=== PATIENT | male | born 1940 | race Caucasian/White ===

== ENCOUNTER 2018-03-07 07:45 | Observation (INO) | payer OTHER ==
[~2018-03-07] VITALS: Ht 175.3 cm; Wt 91.1 kg
[~2018-03-07 07:45] MED LIST: ALBU90OI61 INH; ASPI81CH PO; AZIT250 PO; EZET10; FENO54; GLIM2 PO; GLIM4; INSLI100I SUBQ; INSULANI SUBQ; INSULANPEN; METF500; METF500 PO; PRED20 PO; QUIN200; ROSI2; VALS80; VALS80 PO; VERA80; VERA80 PO
[2018-03-07 08:46] LABS: BASOPHILS ABSOLUTE AUTO 0.06 K/mm3 (0.00-0.23); BASOPHILS PERCENT AUTO 1 % (0-2); EOSINOPHILS ABSOLUTE AUTO 0.29 K/mm3 (0.00-0.68); EOSINOPHILS PERCENT AUTO 3 % (0-6); Hematocrit 40.6 % (37.0-53.0); Hemoglobin 13.7 g/dL (13.5-17.5); IMMATURE GRAN ABSOLUTE AUTO 0.04 K/mm3 (0.00-0.10); IMMATURE GRAN PERCENT AUTO 0 % (0-1); LYMPHOCYTES ABSOLUTE AUTO 1.04 K/mm3 (0.84-5.20); LYMPHOCYTES PERCENT AUTO 11 % (21-46); MONOCYTES ABSOLUTE AUTO 0.44 K/mm3 (0.16-1.47); MONOCYTES PERCENT AUTO 5 % (4-13); Mean Corpuscular HGB 29.7 pg (26.0-34.0); Mean Corpuscular HGB Conc 33.7 g/dL (31.5-36.5); Mean Corpuscular Volume 88 fL (80-100); Mean Platelet Volume 9.7 fL (9.1-12.4); NEUTROPHILS ABSOLUTE AUTO 7.43 K/mm3 (1.96-9.15); NEUTROPHILS PERCENT AUTO 80 % (41-73); Platelet Count 224 K/mm3 (150-400); RDW Coefficient Variation 13.2 % (11.7-14.2); RDW Standard Deviation 42.3 fL (35.1-46.3); Red Blood Cell Count 4.62 M/mm3 (4.30-5.90)
[2018-03-07] MEDS ORDERED: LOSA25 PO (08:58)
[2018-03-07 09:09] LABS: Alanine Aminotransfer (ALT/SGP 39 U/L (12-78); Albumin, Blood 3.3 g/dL (3.4-5.0); Albumin/Globulin Ratio 0.8 (0.8-1.8); Alk Phos 138 U/L (50-136); Anion Gap 8 mmol/L (6-16); Aspartate Aminotrans (AST/SGOT 74 U/L (12-37); Bilirubin, Total 0.5 mg/dL (0.1-1.0); Blood Urea Nitrogen 27 mg/dL (8-24); Bun/Creatinine Ratio 29.6 (12.0-20.0); CO2, Blood 27 mmol/L (21-32); Calcium, Blood 9.2 mg/dL (8.5-10.1); Chloride, Blood 104 mmol/L (98-108); Creatinine, Blood 0.91 mg/dL (0.60-1.20); Globulin, Blood 4.3 g/dL (2.2-4.0); Glomerular Filtration Rate >60 (60-); Glucose, Blood 235 mg/dL (70-99); Potassium, Blood 3.9 mmol/L (3.5-5.5); Sodium, Blood 139 mmol/L (136-145); Total Protein, Blood 7.6 g/dL (6.4-8.2); Troponin I <0.015 ng/mL (0.000-0.040)
[2018-03-08] MEDS ORDERED: PRED20 PO (11:53)
[2018-03-08] MEDS ORDERED: SACC250C PO (11:57)
[2018-03-08] MEDS ORDERED: AMOCLA500 PO (11:58)
[2018-03-08] MEDS ORDERED: COMBIVENT RESPIM4 GM INH (12:01)
== END 2018-03-08 13:10 | disposition home or self-care (01) ==
LOC: ER 07:45 → MEDS 07:46 → ER 11:13 → MEDS 11:13 → ENPENDDIS 03-08 10:00 → MEDS 03-08 13:10
PROVIDERS: Emergency Medicine
DX: A41.9 Sepsis, unspecified organism (principal); R65.20 Severe sepsis without septic shock; J96.01 Acute respiratory failure with hypoxia; I10 Essential (primary) hypertension; E11.9 Type 2 diabetes mellitus without complications; J44.9 Chronic obstructive pulmonary disease, unspecified; J18.9 Pneumonia, unspecified organism; Z85.038 Personal history of other malignant neoplasm of large intestine; Z87.891 Personal history of nicotine dependence; Z79.82 Long term (current) use of aspirin; Z79.4 Long term (current) use of insulin; Z79.899 Other long term (current) drug therapy
CPT/HCPCS: 36415; 71046; 80053; 82947; 83605; 84145; 84484; 85025; 93005; 93010; 94640; 94644; 94760; 96365; 96366; 96367; 96372; 99285; G0378; J0456; J0696; J1650; J1815; J7030; J7050; J7120

== ENCOUNTER → 2018-03-10 | Outpatient (CLI) | payer OTHER ==
[~2018-03-10] MED LIST changes: +AMOCLA500 PO; +BUSP10 PO; +CLON1 PO; +COMBIVENT RESPIM4 GM INH; +LOSA25 PO; +Prednisone20 MG PO; +SACC250C PO
== END | disposition home or self-care (01) ==
LOC: LAB SHORT 11:01 → LAB 11:01
DX: R05 Cough (principal)
CPT/HCPCS: 87070; 87102; 87106; 87205

== ENCOUNTER 2018-03-14 13:27 | Emergency (ER) | payer OTHER ==
[~2018-03-14] VITALS: Ht 175.3 cm; Wt 87.5 kg
[~2018-03-14 13:27] MED LIST changes: -BUSP10 PO; -CLON1 PO; -Prednisone20 MG PO
[2018-03-14] MEDS ORDERED: Prednisone20 MG PO (16:10)
[2018-03-15] MEDS ORDERED: LOSA25 PO (03:33)
[2018-03-16] MEDS ORDERED: BUSP10 PO (11:12)
[2018-03-16] MEDS ORDERED: CLON1 PO (11:13)
== END 2018-03-14 16:25 | disposition home or self-care (01) ==
LOC: ER 13:27
DX: J98.11 Atelectasis (principal); J44.9 Chronic obstructive pulmonary disease, unspecified; E11.9 Type 2 diabetes mellitus without complications; Z79.899 Other long term (current) drug therapy; Z79.4 Long term (current) use of insulin; Z79.82 Long term (current) use of aspirin; Z79.52 Long term (current) use of systemic steroids; Z87.891 Personal history of nicotine dependence
CPT/HCPCS: 36415; 71046; 94640; 94644; 94667; 96374; 99283; J2930

== ENCOUNTER 2018-03-14 22:03 | Observation (INO) | payer OTHER ==
[~2018-03-14] VITALS: Ht 175.3 cm; Wt 89.5 kg
[~2018-03-14 22:03] MED LIST changes: +Prednisone20 MG PO
[2018-03-14 23:34] LABS: BASOPHILS ABSOLUTE AUTO 0.03 K/mm3 (0.00-0.23); BASOPHILS PERCENT AUTO 0 % (0-2); EOSINOPHILS PERCENT AUTO 0 % (0-6); Hematocrit 43.6 % (37.0-53.0); Hemoglobin 14.6 g/dL (13.5-17.5); IMMATURE GRAN ABSOLUTE AUTO 0.13 K/mm3 (0.00-0.10); IMMATURE GRAN PERCENT AUTO 1 % (0-1); LYMPHOCYTES ABSOLUTE AUTO 0.79 K/mm3 (0.84-5.20); LYMPHOCYTES PERCENT AUTO 8 % (21-46); MONOCYTES ABSOLUTE AUTO 0.06 K/mm3 (0.16-1.47); MONOCYTES PERCENT AUTO 1 % (4-13); Mean Corpuscular HGB 29.6 pg (26.0-34.0); Mean Corpuscular HGB Conc 33.5 g/dL (31.5-36.5); Mean Corpuscular Volume 88 fL (80-100); Mean Platelet Volume 9.4 fL (9.1-12.4); NEUTROPHILS PERCENT AUTO 90 % (41-73); Platelet Count 326 K/mm3 (150-400); RDW Coefficient Variation 12.8 % (11.7-14.2); RDW Standard Deviation 41.6 fL (35.1-46.3); Red Blood Cell Count 4.94 M/mm3 (4.30-5.90); White Blood Cell Count 10.31 K/mm3 (4.00-11.30)
[2018-03-14 23:54] LABS: Alanine Aminotransfer (ALT/SGP 47 U/L (12-78); Albumin, Blood 3.4 g/dL (3.4-5.0); Albumin/Globulin Ratio 0.7 (0.8-1.8); Alk Phos 138 U/L (50-136); Anion Gap 13 mmol/L (6-16); Aspartate Aminotrans (AST/SGOT 41 U/L (12-37); Bilirubin, Total 0.4 mg/dL (0.1-1.0); Blood Urea Nitrogen 29 mg/dL (8-24); Bun/Creatinine Ratio 32.5 (12.0-20.0); CO2, Blood 23 mmol/L (21-32); Calcium, Blood 9.6 mg/dL (8.5-10.1); Chloride, Blood 100 mmol/L (98-108); Creatinine, Blood 0.89 mg/dL (0.60-1.20); Globulin, Blood 4.7 g/dL (2.2-4.0); Glomerular Filtration Rate >60 (60-); Glucose, Blood 561 mg/dL (70-99); Potassium, Blood 5.2 mmol/L (3.5-5.5); Sodium, Blood 136 mmol/L (136-145); Total Protein, Blood 8.1 g/dL (6.4-8.2); Troponin I <0.015 ng/mL (0.000-0.040)
[2018-03-15] MEDS ORDERED: LOSA25 PO ×2 (03:33)
[2018-03-15 04:08] LABS: Hematocrit 40.6 % (37.0-53.0); Hemoglobin 13.7 g/dL (13.5-17.5); Mean Corpuscular HGB 29.2 pg (26.0-34.0); Mean Corpuscular HGB Conc 33.7 g/dL (31.5-36.5); Mean Corpuscular Volume 87 fL (80-100); Mean Platelet Volume 9.7 fL (9.1-12.4); Platelet Count 254 K/mm3 (150-400); RDW Standard Deviation 40.8 fL (35.1-46.3); Red Blood Cell Count 4.69 M/mm3 (4.30-5.90); White Blood Cell Count 7.35 K/mm3 (4.00-11.30)
[2018-03-15 04:40] LABS: Anion Gap 13 mmol/L (6-16); Blood Urea Nitrogen 29 mg/dL (8-24); Bun/Creatinine Ratio 33.9 (12.0-20.0); CO2, Blood 23 mmol/L (21-32); Calcium, Blood 9.6 mg/dL (8.5-10.1); Chloride, Blood 102 mmol/L (98-108); Creatinine, Blood 0.86 mg/dL (0.60-1.20); Glomerular Filtration Rate >60 (60-); Glucose, Blood 482 mg/dL (70-99); Potassium, Blood 4.6 mmol/L (3.5-5.5); Sodium, Blood 138 mmol/L (136-145)
[2018-03-16] MEDS ORDERED: BUSP10 PO ×2 (11:12)
[2018-03-16] MEDS ORDERED: CLON1 PO ×2 (11:13)
== END 2018-03-16 12:08 | disposition home or self-care (01) ==
LOC: ER 22:03 → MEDS 22:04
PROVIDERS: Emergency Medicine; Nurse Practitioner Acute Care
DX: J44.1 Chronic obstructive pulmonary disease with (acute) exacerbation (principal); F41.9 Anxiety disorder, unspecified; R09.02 Hypoxemia; I10 Essential (primary) hypertension; E11.65 Type 2 diabetes mellitus with hyperglycemia; Z85.038 Personal history of other malignant neoplasm of large intestine; Z79.82 Long term (current) use of aspirin; Z79.899 Other long term (current) drug therapy; Z79.52 Long term (current) use of systemic steroids; Z88.8 Allergy status to other drugs, medicaments and biological substances; Z87.891 Personal history of nicotine dependence; Z79.01 Long term (current) use of anticoagulants
CPT/HCPCS: 36415; 74177; 80048; 80053; 82947; 83880; 84484; 85025; 85027; 93005; 93010; 94640; 94760; 96361; 96374; 96375; 96376; 99285; G0378; J0360; J1815; J1940; J2060; J2920; J2930; J7030; Q9967

== ENCOUNTER 2019-08-10 18:17 | Emergency (ER) | payer OTHER ==
[~2019-08-10 18:17] MED LIST changes: +ALBU90OI INH; +BUSP5 PO; +CITA20 PO; +CLON1 PO; +ESCI5 PO; -INSULANPEN; +INSULANPEN SC; +LIRA0.6P SC; +LOSA50 PO; +METF500C; +METO25 PO; +VERA120 PO
== END 2019-08-10 18:51 | disposition left against medical advice (07) ==
LOC: ER 18:17
DX: Z53.21 Procedure and treatment not carried out due to patient leaving prior to being seen by health care provider (principal)

== ENCOUNTER → 2019-08-12 | Outpatient (CLI) | payer OTHER ==
[2019-08-12 09:35] LABS: Source, Urine Clean Catch
[2019-08-12 10:21] LABS: Bilirubin, Urine Neg (Neg); Blood, Urine 5+ (Neg); Glucose Qualitative, Urine 4+ (Neg); Ketones, Urine Neg (Neg); Leukocyte Esterase, Urine 3+ (Neg); Nitrite, Urine Neg (Neg); Protein, Urine 3+ (Neg); Urobilinogen, Urine NORM (Normal)
[2019-08-12 10:37] LABS: Appearance, Urine Cloudy (Clear); Color, Urine Yellow (P-Yellow)
[2019-08-12 10:38] LABS: White Blood Cells, Urine TNTC /hpf (0-5)
[2019-08-12 10:39] LABS: Bacteria Many /hpf; Squamous Epithelial Cells Not Seen /hpf (Few)
== END | disposition home or self-care (01) ==
LOC: LAB 09:33 → LAB SHORT 09:33 → LAB FUT 08-11 18:15
PROVIDERS: Internal Medicine
DX: R30.0 Dysuria (principal)
CPT/HCPCS: 81001; 87077; 87086; 87186

== ENCOUNTER 2020-04-15 21:41 | Emergency (ER) | payer OTHER ==
[~2020-04-15] VITALS: Ht 175.3 cm; Wt 79.4 kg
[~2020-04-15 21:41] MED LIST changes: -ASPI81CH PO; +Aspirin EC81 MG PO; -BUSP5 PO; +Buspirone HCl7.5 MG PO; -INSULANPEN SC; +LANTUS SOL100 UNIT/1 SC
[2020-04-15 22:14] LABS: Source, Urine Catheter
[2020-04-15 22:17] LABS: BASOPHILS ABSOLUTE AUTO 0.03 K/mm3 (0.00-0.23); BASOPHILS PERCENT AUTO 0 % (0-2); EOSINOPHILS ABSOLUTE AUTO 0.01 K/mm3 (0.00-0.68); EOSINOPHILS PERCENT AUTO 0 % (0-6); Hematocrit 38.4 % (37.0-53.0); Hemoglobin 12.8 g/dL (13.5-17.5); IMMATURE GRAN ABSOLUTE AUTO 0.08 K/mm3 (0.00-0.10); IMMATURE GRAN PERCENT AUTO 1 % (0-1); LYMPHOCYTES ABSOLUTE AUTO 0.61 K/mm3 (0.84-5.20); LYMPHOCYTES PERCENT AUTO 6 % (21-46); MONOCYTES ABSOLUTE AUTO 0.24 K/mm3 (0.16-1.47); MONOCYTES PERCENT AUTO 2 % (4-13); Mean Corpuscular HGB Conc 33.3 g/dL (31.5-36.5); Mean Corpuscular Volume 87 fL (80-100); Mean Platelet Volume 9.4 fL (9.1-12.4); NEUTROPHILS ABSOLUTE AUTO 8.93 K/mm3 (1.96-9.15); NEUTROPHILS PERCENT AUTO 90 % (41-73); Platelet Count 222 K/mm3 (150-400); RDW Coefficient Variation 13.4 % (11.7-14.2); Red Blood Cell Count 4.41 M/mm3 (4.30-5.90)
[2020-04-15 22:21] LABS: Appearance, Urine Cloudy (Clear); Bilirubin, Urine Neg (Neg); Blood, Urine 3+ (Neg); Color, Urine Yellow (P-Yellow); Glucose Qualitative, Urine 4+ (Neg); Ketones, Urine Neg (Neg); Leukocyte Esterase, Urine 3+ (Neg); Nitrite, Urine Pos (Neg); Protein, Urine 3+ (Neg); Specific Gravity, Urine 1.015 (1.003-1.022); Urobilinogen, Urine NORM (Normal)
[2020-04-15 22:27] LABS: Red Blood Cells, Urine 0-2 /hpf (0-2); White Blood Cells, Urine TNTC /hpf (0-5)
[2020-04-15 22:28] LABS: Bacteria Many /hpf; Squamous Epithelial Cells Few /hpf (Few)
[2020-04-15 22:36] LABS: Alanine Aminotransfer (ALT/SGP 51 U/L (12-78); Albumin, Blood 3.1 g/dL (3.4-5.0); Albumin/Globulin Ratio 0.7 (0.8-1.8); Alk Phos 222 U/L (50-136); Anion Gap 7 mmol/L (6-16); Aspartate Aminotrans (AST/SGOT 58 U/L (12-37); Bilirubin, Total 0.7 mg/dL (0.1-1.0); Blood Urea Nitrogen 36 mg/dL (8-24); Bun/Creatinine Ratio 32.4 (12.0-20.0); CO2, Blood 24 mmol/L (21-32); Calcium, Blood 9.1 mg/dL (8.5-10.1); Chloride, Blood 107 mmol/L (98-108); Creatinine, Blood 1.11 mg/dL (0.60-1.20); Globulin, Blood 4.6 g/dL (2.2-4.0); Glomerular Filtration Rate >60 (60-); Glucose, Blood 388 mg/dL (70-99); Potassium, Blood 4.3 mmol/L (3.5-5.5); Sodium, Blood 138 mmol/L (136-145); Total Protein, Blood 7.7 g/dL (6.4-8.2)
[2020-04-15] MEDS ORDERED: NOVOLOG100 UNIT/2 SC (22:52)
== END 2020-04-16 01:01 | disposition short-term general hospital (02) ==
LOC: ER 21:41
PROVIDERS: Emergency Medicine
DX: A41.9 Sepsis, unspecified organism (principal); N39.0 Urinary tract infection, site not specified; R33.9 Retention of urine, unspecified; Z20.828 Contact with and (suspected) exposure to other viral communicable diseases; G93.40 Encephalopathy, unspecified; Z88.8 Allergy status to other drugs, medicaments and biological substances; Z79.82 Long term (current) use of aspirin; Z79.4 Long term (current) use of insulin; Z79.899 Other long term (current) drug therapy; E11.9 Type 2 diabetes mellitus without complications; Z87.891 Personal history of nicotine dependence
CPT/HCPCS: 71045; 76770; 80053; 81001; 83036; 83605; 85025; 87077; 87086; 87186; 93005; 93010; 96361; 96365; 96367; 96375; 99285-25; J0456; J0696; J2060; J7030; J7050; U0002

== ENCOUNTER 2020-06-12 15:31 | Emergency (ER) | payer OTHER ==
[~2020-06-12] VITALS: Ht 175.3 cm; Wt 80.7 kg
[~2020-06-12 15:31] MED LIST changes: +NOVOLOG100 UNIT/2 SC
[2020-06-12 16:30] LABS: BASOPHILS ABSOLUTE AUTO 0.04 K/mm3 (0.00-0.23); BASOPHILS PERCENT AUTO 0 % (0-2); EOSINOPHILS ABSOLUTE AUTO 0.22 K/mm3 (0.00-0.68); EOSINOPHILS PERCENT AUTO 2 % (0-6); Hematocrit 39.4 % (37.0-53.0); Hemoglobin 13.2 g/dL (13.5-17.5); IMMATURE GRAN ABSOLUTE AUTO 0.03 K/mm3 (0.00-0.10); IMMATURE GRAN PERCENT AUTO 0 % (0-1); LYMPHOCYTES ABSOLUTE AUTO 1.56 K/mm3 (0.84-5.20); LYMPHOCYTES PERCENT AUTO 13 % (21-46); MONOCYTES ABSOLUTE AUTO 0.43 K/mm3 (0.16-1.47); MONOCYTES PERCENT AUTO 3 % (4-13); Mean Corpuscular HGB 29.7 pg (26.0-34.0); Mean Corpuscular HGB Conc 33.5 g/dL (31.5-36.5); Mean Corpuscular Volume 89 fL (80-100); Mean Platelet Volume 9.2 fL (9.1-12.4); NEUTROPHILS ABSOLUTE AUTO 10.25 K/mm3 (1.96-9.15); NEUTROPHILS PERCENT AUTO 82 % (41-73); Platelet Count 264 K/mm3 (150-400); RDW Coefficient Variation 13.2 % (11.7-14.2); RDW Standard Deviation 42.9 fL (35.1-46.3); Red Blood Cell Count 4.45 M/mm3 (4.30-5.90); White Blood Cell Count 12.53 K/mm3 (4.00-11.30)
[2020-06-12 16:47] LABS: Alanine Aminotransfer (ALT/SGP 29 U/L (12-78); Albumin, Blood 3.4 g/dL (3.4-5.0); Albumin/Globulin Ratio 0.8 (0.8-1.8); Alk Phos 138 U/L (50-136); Anion Gap 5 mmol/L (6-16); Aspartate Aminotrans (AST/SGOT 23 U/L (12-37); Bilirubin, Total 0.5 mg/dL (0.1-1.0); Blood Urea Nitrogen 19 mg/dL (8-24); Bun/Creatinine Ratio 21.5 (12.0-20.0); CO2, Blood 28 mmol/L (21-32); Calcium, Blood 9.6 mg/dL (8.5-10.1); Chloride, Blood 105 mmol/L (98-108); Creatinine, Blood 0.88 mg/dL (0.60-1.20); Globulin, Blood 4.1 g/dL (2.2-4.0); Glomerular Filtration Rate >60 (60-); Glucose, Blood 227 mg/dL (70-99); Potassium, Blood 4.4 mmol/L (3.5-5.5); Sodium, Blood 138 mmol/L (136-145); Total Protein, Blood 7.5 g/dL (6.4-8.2); Troponin I <0.015 ng/mL (0.000-0.040)
[2020-06-12 17:12] LABS: Source, Urine Clean Catch
[2020-06-12 17:25] LABS: Appearance, Urine Hazy (Clear); Bilirubin, Urine Neg (Neg); Blood, Urine 2+ (Neg); Color, Urine Yellow (P-Yellow); Glucose Qualitative, Urine 2+ (Neg); Ketones, Urine 1+ (Neg); Leukocyte Esterase, Urine 3+ (Neg); Nitrite, Urine Neg (Neg); Protein, Urine 3+ (Neg); Urobilinogen, Urine NORM (Normal)
[2020-06-12 18:18] LABS: White Blood Cells, Urine TNTC /hpf (0-5)
[2020-06-12 18:19] LABS: Bacteria Many /hpf; Yeast/Fungi Urine Few /hpf
[2020-06-12 18:20] LABS: Squamous Epithelial Cells Few /hpf (Few)
[2020-06-12] MEDS ORDERED: CEFP200 PO (21:01)
[2020-06-12] MEDS ORDERED: Diflucan100 MG PO (21:01)
== END 2020-06-12 20:10 | disposition home or self-care (01) ==
LOC: ER 15:31
PROVIDERS: Physician Assistant
DX: N39.0 Urinary tract infection, site not specified (principal); B37.49 Other urogenital candidiasis; Z88.8 Allergy status to other drugs, medicaments and biological substances; Z79.899 Other long term (current) drug therapy; Z79.82 Long term (current) use of aspirin; Z79.4 Long term (current) use of insulin; E11.9 Type 2 diabetes mellitus without complications; J44.9 Chronic obstructive pulmonary disease, unspecified; E03.9 Hypothyroidism, unspecified; Z87.891 Personal history of nicotine dependence
CPT/HCPCS: 36415; 80053; 81001; 83690; 84484; 85025; 87086; 93005; 93010; 96365; 96375; 99284-25; J0696; J2405; J3010; J7120

== ENCOUNTER 2020-09-23 19:15 | Inpatient (IN) | payer OTHER ==
[~2020-09-23] VITALS: Ht 175.3 cm; Wt 64.4 kg
[~2020-09-23 19:15] MED LIST changes: +CEFP200 PO; +Diflucan100 MG PO; -ESCI5 PO; -LANTUS SOL100 UNIT/1 SC; -LOSA50 PO; -METO25 PO; -NOVOLOG100 UNIT/2 SC
[2020-09-23 20:05] LABS: BASOPHILS ABSOLUTE AUTO 0.05 K/mm3 (0.00-0.23); BASOPHILS PERCENT AUTO 0 % (0-2); EOSINOPHILS ABSOLUTE AUTO 0.02 K/mm3 (0.00-0.68); EOSINOPHILS PERCENT AUTO 0 % (0-6); Hematocrit 44.5 % (37.0-53.0); Hemoglobin 15.8 g/dL (13.5-17.5); IMMATURE GRAN ABSOLUTE AUTO 0.09 K/mm3 (0.00-0.10); IMMATURE GRAN PERCENT AUTO 1 % (0-1); LYMPHOCYTES ABSOLUTE AUTO 2.07 K/mm3 (0.84-5.20); LYMPHOCYTES PERCENT AUTO 12 % (21-46); MONOCYTES ABSOLUTE AUTO 0.61 K/mm3 (0.16-1.47); MONOCYTES PERCENT AUTO 3 % (4-13); Mean Corpuscular HGB 28.8 pg (26.0-34.0); Mean Corpuscular HGB Conc 35.5 g/dL (31.5-36.5); Mean Corpuscular Volume 81 fL (80-100); Mean Platelet Volume 9.5 fL (9.1-12.4); NEUTROPHILS ABSOLUTE AUTO 14.89 K/mm3 (1.96-9.15); NEUTROPHILS PERCENT AUTO 84 % (41-73); Platelet Count 638 K/mm3 (150-400); RDW Coefficient Variation 12.7 % (11.7-14.2); RDW Standard Deviation 37.2 fL (35.1-46.3); Red Blood Cell Count 5.48 M/mm3 (4.30-5.90); White Blood Cell Count 17.73 K/mm3 (4.00-11.30)
[2020-09-23 20:23] LABS: Albumin, Blood 3.3 g/dL (3.4-5.0); Albumin/Globulin Ratio 0.5 (0.8-1.8); Bilirubin, Total 0.7 mg/dL (0.1-1.0); Bun/Creatinine Ratio 49.8 (12.0-20.0); Calcium, Blood 11.2 mg/dL (8.5-10.1); Creatinine, Blood 2.15 mg/dL (0.60-1.20); Globulin, Blood 6.1 g/dL (2.2-4.0); Potassium, Blood 5.9 mmol/L (3.5-5.5); Total Protein, Blood 9.4 g/dL (6.4-8.2)
[2020-09-24 00:01] LABS: Source, Urine Clean Catch
[2020-09-24 00:05] LABS: Appearance, Urine Cloudy (Clear); Bilirubin, Urine Neg (Neg); Blood, Urine 5+ (Neg); Color, Urine Amber (P-Yellow); Glucose Qualitative, Urine Neg (Neg); Ketones, Urine 1+ (Neg); Leukocyte Esterase, Urine 3+ (Neg); Nitrite, Urine Pos (Neg); Protein, Urine 4+ (Neg); Specific Gravity, Urine 1.015 (1.003-1.022); Urobilinogen, Urine NORM (Normal)
[2020-09-24 00:12] LABS: Red Blood Cells, Urine 25-50 /hpf (0-2); Squamous Epithelial Cells Few /hpf (Few); White Blood Cells, Urine TNTC /hpf (0-5); Yeast/Fungi Urine Few /hpf
[2020-09-24 00:13] LABS: Bacteria Mod /hpf
[2020-09-24 05:01] LABS: BASOPHILS ABSOLUTE AUTO 0.06 K/mm3 (0.00-0.23); BASOPHILS PERCENT AUTO 0 % (0-2); EOSINOPHILS ABSOLUTE AUTO 0.01 K/mm3 (0.00-0.68); EOSINOPHILS PERCENT AUTO 0 % (0-6); Hematocrit 40.4 % (37.0-53.0); IMMATURE GRAN ABSOLUTE AUTO 0.07 K/mm3 (0.00-0.10); IMMATURE GRAN PERCENT AUTO 0 % (0-1); LYMPHOCYTES ABSOLUTE AUTO 2.36 K/mm3 (0.84-5.20); LYMPHOCYTES PERCENT AUTO 12 % (21-46); MONOCYTES ABSOLUTE AUTO 0.93 K/mm3 (0.16-1.47); MONOCYTES PERCENT AUTO 5 % (4-13); Mean Corpuscular HGB 28.1 pg (26.0-34.0); Mean Corpuscular HGB Conc 34.7 g/dL (31.5-36.5); Mean Corpuscular Volume 81 fL (80-100); Mean Platelet Volume 9.4 fL (9.1-12.4); NEUTROPHILS ABSOLUTE AUTO 16.02 K/mm3 (1.96-9.15); NEUTROPHILS PERCENT AUTO 82 % (41-73); Platelet Count 479 K/mm3 (150-400); RDW Coefficient Variation 12.7 % (11.7-14.2); RDW Standard Deviation 37.4 fL (35.1-46.3); Red Blood Cell Count 4.98 M/mm3 (4.30-5.90); White Blood Cell Count 19.45 K/mm3 (4.00-11.30)
[2020-09-24 05:15] LABS: Bun/Creatinine Ratio 55.6 (12.0-20.0); Calcium, Blood 10.5 mg/dL (8.5-10.1); Creatinine, Blood 2.05 mg/dL (0.60-1.20); Potassium, Blood 5.3 mmol/L (3.5-5.5)
--- NOTE | 2020-09-24 06:05 | NUR ---
UPDATE DR BRENNAN NOTIFIED OF PATIENT'S CRITICAL LACTIC VALUE AND OF PATIENT'S BLOOD SUGAR LEVEL THIS AM. ORDERS RECEIVED.
--- NOTE | 2020-09-24 07:51 | NUR ---
ADMIT NOTE/SHIFT SUMMARY PATIENT ADMITTED FROM THE ER EARLIER THIS SHIFT. PATIENT VERY ANXIOUS. PATIENT SETTLED IN AND ORIENTED TO THE ROOM, UNIT, AND CALL LIGHT. PATIENT FREQUENTLY CALLS OUT "OH MY GOSH, WHAT A HORRIBLE DAY!" WHEN ASKED WHAT CAN BE DONE TO ASSIST PATIENT HE STATES, "I DON'T KNOW, I JUST DONT' FEEL GOOD." PATIENT REPORTS FEELING VERY WEAK AND HAVING A DECREASED APPTITE OVER THE PAST FEW WEAKS. PATIENT STATES HE HAS LOST LOTS OF WEIGHT RECENTLY. VITAL SIGNS CHARTED. REPORT GIVEN TO ONCOMING RN.
[2020-09-24] MEDS ORDERED: LANTUS SOL100 UNIT/1 SC (13:09)
[2020-09-24] MEDS ORDERED: LOSA50 PO (13:11)
[2020-09-24] MEDS ORDERED: METO25 PO (13:11)
[2020-09-24] MEDS ORDERED: FUROSEMIDE40 MG PO (13:11)
[2020-09-24] MEDS ORDERED: TAMSULOSIN HCL0.4 M1 PO (13:12)
[2020-09-24] MEDS ORDERED: ESCI5 PO (13:12)
[2020-09-24] MEDS ORDERED: POTA10T PO (13:13)
[2020-09-24] MEDS ORDERED: METF500 PO (13:13)
[2020-09-24] MEDS ORDERED: NOVOLOG100 UNIT/2 SC (13:14)
--- NOTE | 2020-09-24 17:03 | NUR ---
PT CONTINUES ALERT T/OUT SHIFT, FREQUENTLY SHOUTING "HELP ME", STATES "I DON'T KNOW" OR "I'M IN A BAD WAY" OR "I JUST DON'T FEEL WELL" WHEN STAFF ENTER ROOM AND TRY TO ASSIST PT. PT EDUCATED ABOUT USE OF CALL LIGHT FOR ASSISTANCE, VERBALIZES UNDERSTANDING, CONTINUES TO BE INCONSISTENT WITH CALL LIGHT USAGE AND SHOUTING OUT. RESPIRATIONS CONTINUE TO BE TACHYPNEIC AND SHALLOW. PT C/O HEADACHE AND NECK PAIN. MEDICATED WITH PRN TYLENOL, EXTRA PILLOW, AND REPOSITIONING. STATES IMPROVEMENT OF DISCOMFORT. PT ABLE TO ROLL SIDE TO SIDE TO ASSIST WITH PERICARE AND LINEN CHANGES. REDNESS NOTED TO BUTTOCKS, BUT NO SKIN BREAKDOWN NOTED. PT RECEIVING IVF AT 75/HR. WILL CONTINUE TO MONITOR AND TREAT ACCORDINGLY UNTIL CHANGE OF SHIFT.
[2020-09-25 04:28] LABS: Hematocrit 35.7 % (37.0-53.0); Hemoglobin 12.2 g/dL (13.5-17.5)
[2020-09-25 05:04] LABS: CPK Creatine Kinase 127 U/L (39-308); Thyroid Stimulating Hormone 0.691 uIU/mL (0.360-4.800); Uric Acid, Blood 12.8 mg/dL (3.5-7.2)
[2020-09-25 05:06] LABS: Albumin, Blood 2.3 g/dL (3.4-5.0); Anion Gap 8 mmol/L (6-16); Blood Urea Nitrogen 90 mg/dL (8-24); Bun/Creatinine Ratio 59.2 (12.0-20.0); CO2, Blood 23 mmol/L (21-32); Calcium, Blood 9.6 mg/dL (8.5-10.1); Chloride, Blood 105 mmol/L (98-108); Creatinine, Blood 1.52 mg/dL (0.60-1.20); Glomerular Filtration Rate 47 (60-); Glucose, Blood 119 mg/dL (70-99); Phosphorus, Blood 2.9 mg/dL (2.5-4.9); Potassium, Blood 4.1 mmol/L (3.5-5.5); Sodium, Blood 136 mmol/L (136-145)
--- NOTE | 2020-09-25 05:14 | NUR ---
shift summary pt was restless and uncomfortable through most of night. pt states "he just does not feel good", but cant specify what's bothering him or how he feels. rn medicated discomfort with pain meds - see emar, heating pack, warmed blankets, repositioning. pt sats remain >90% on room air. tele verified with [facility] room - aflutter. pt has frequent incontinent urine outputs - attends changed through night. no bm. scd's in place. ivf sodium bicard @ 75ml/hr. vss. call light within reach. bed alarm on and in lowest position. will continue to monitor until report given to oncoming rn.
--- NOTE | 2020-09-25 17:40 | NUR ---
SHIFT SUMMARY PT ALERT AND OREINTED TO PERSON, PLACE AND FAMILY. INCREASED CONFUSION AT NOC. FORGETFUL AT TIMES. PT RESTING IN BED. REFUSING TO WORK WITH PT/OT DURING SHIFT. PT REPORTING PAIN BUT REFUSING NEED FOR MEDICATION. PT DENIES CHEST PAIN, SOB, NAUSEA AND DIZZINESS. PT C/O BEING COLD REQUIRING MULTIPLE BLANKETS THEN QUICKLY NEEDS TO BE COLD OFF BECAUSE HE IS TOO WARM. PT RECEIVING CLINIMIX. ATTMEPTED TO PLACE MACHADO CATHETER THIS AFTERNOON, PT SPOUSE STATES THAT THEY HAD A SIMILAR PROBLEM IN 04/2020 AND WAS SENT TO [facility]. PT IS PEEING AND HAS HAD MULTIPLE WET ATTENDS, BLADDER SCAN 136CC IN BLADDER; LEFT MESSAGE FOR DR VILLA. VSS. NO OTHER ACUTE CHANGES NOTED DURING SHIFT. WILL CONTINUE TO MONITOR UNITL REPORT GIVEN TO ONCOMING RN.
--- NOTE | 2020-09-25 17:53 | NUR ---
MACHADO ATTEMPTED; UNABLE TO PLACE MACHADO CATHETER 14 COUDE; PT SPOUSE STATES THAT IN 04/2020 THEY HAD A SIMILAR PROBLEM. PT CONTINUES TO HAVE INCONTENT EPISODES IN ATTENDS; BLADDER SCAN 136; NOTIIFED DR VILLA; OK TO NOT PLACE MACHADO CATHETER.
--- NOTE | 2020-09-25 18:05 | NUR ---
TELEPHONE REPORT GIVEN TO DANA FLORES ASSUMING CARE. PT TO BE TRANSFERED TO ROOM 345. SPOUSE NOTIFIED.
--- NOTE | 2020-09-25 18:44 | NUR ---
PT ARRIVED TO ROOM 345 FROM PCU. SETTLED IN TO BED AND ORIENTED TO ROOM AND CALL BUTTON. MAKING MANY REQUESTS FOR COMFORT NEEDS IE WATER, WARMTH, REPOSITIONING AFTER TRANSITIONED INTO NEW BED. CALLING OUT FREQUENTLY. WILL REPORT CONDITION TO ONCOMING SHIFT.
--- NOTE | 2020-09-25 19:17 | NUR ---
ADMIT NOTE RECEIVED REPORT FROM DANA FORTE IN ED. PT TO ROOM VIA GURNEY AT 1830; 1 PERSON ASSIST TRANSFER TO BED. PT MARLON HYPOTENSIVE WHILE SITTING ON SIFE OF BED; NOTIIFED ANDREW QA MANAGER; BP ELEVATED WHILE PT LAYING DOWN; PER ANDREW CONTINUE TO MONITOR. PT ORIENTED TO ROOM AND CALL LIGHT. EDCUATED ON FALL RISK AND TO USE CALL LIGHT BEFORE GETTING UP. PROTONIX GTT AND IV FLUDIS. PT SKIN PALE. DENIES PAIN AND SOB. REPORTS NONPRODUCTIVE COUGH AT BASELINE. OTHER VSS. NO OTHER ACUTE CHANGES NOTED DURING SHIFT. REPORT GIVEN TO ONCOMING RN.
[2020-09-26 05:07] LABS: Hematocrit 35.1 % (37.0-53.0); Hemoglobin 11.6 g/dL (13.5-17.5)
[2020-09-26 05:26] LABS: Albumin, Blood 2.3 g/dL (3.4-5.0); Anion Gap 7 mmol/L (6-16); Blood Urea Nitrogen 62 mg/dL (8-24); Bun/Creatinine Ratio 45.3 (12.0-20.0); CO2, Blood 26 mmol/L (21-32); Calcium, Blood 9.6 mg/dL (8.5-10.1); Chloride, Blood 103 mmol/L (98-108); Creatinine, Blood 1.37 mg/dL (0.60-1.20); Glomerular Filtration Rate 53 (60-); Glucose, Blood 305 mg/dL (70-99); Phosphorus, Blood 2.3 mg/dL (2.5-4.9); Potassium, Blood 3.9 mmol/L (3.5-5.5); Sodium, Blood 136 mmol/L (136-145)
--- NOTE | 2020-09-26 06:09 | NUR ---
SHIFT SUMMARY: BEE HAS BEEN AWAKE ALL NIGHT AND ON THE CALL LIGHT FOR THINGS HE CAN DO HIMSELF SUCH TAKE A COVER OFF, OR PUT HIS HEAD UP, OR ASKING FOR FOOD THAT WAS RIGHT IN FRONT OF HIM. HE WOULD ASK FOR CAKE OR ICE CREAM, AND WHEN WE SAID WE DON'T HAVE IT AND REMIND HIM HE IS A DIABETIC HE WOULD CUSS BACK AT US. HE INFORMED US THAT HE DOES NOT FOLLOW A DIABETIC DIET AT HOME. HE WOULD YELL OUT HELP AND WHEN ASKED WHATS WRONG HE WOULD SAY "I DON'T KNOW, I DON'T FEEL GOOD." FINALLY HE WAS ABLE TO STATE HE WAS ANXIOUS, SO WAS CALLED AND ZYPREXA WAS GIVEN. THIS DID NOTHING FOR HIM. ON SEVERAL OCCATIONS HE WOULD GET ANGRY AND TELL US TO "GET THE HELL OUT". WE CONTINUED TO FIND TISSUES IN HIS BED AND SHOVED DOWN INTO HIS ATTENDS, SO WE REMOVED THE TISSUE BOX. WHEN HE DID GET UP TO BSC HIS URINE WAS A THICK, WHITE MILKY COLOR WITH FOUL ODOR, AND HE HAD URGENCY AND FREQUENCY. PAIN IN BACK NOTED, TYLENOL WAS GIVEN FOR THAT. VS WNL, AFEBRILE. IV INFUSING CLINIMAX. NO OTHER CHANGES TO NOTE THIS SHIFT, CALL LIGHT IS IN REACH, BED ALARM IS ON.
--- NOTE | 2020-09-26 14:54 | NUR ---
CALLED DR KYUNG BERGERON HAS A NEW ORDER FOR LOVENOX FOR DVT PROPHYLAXIS HOWEVER HE HAS BEEN WEARING THE SCD'S. ORDER RECIEVED TO DC LOVENOX AT THIS TIME.
--- NOTE | 2020-09-26 15:41 | NUR ---
SHIFT SUMMARY- PT ALERT ANDF ORIENTED TO SELF, FAMILY, AND SITUATION (SOMETIMES) PT SPOUSE STATED HE WAS ASKING WHERE HIS MOTHER WAS AND IF HE COULD GO SEE HER. PT MOTHER IS NO LONGER ALIVE. PT WAS EVALUATED BY PT AND OT RECOMENDATION CURRENTLY IS SNF. SPOKE TO DC PLANNING, THEY ARE NOW AWARE OF THE RECOMENDATION. PLANNING TO DC EARLY TOMORROW IF A BED IS AVAILABLE. PT HAS BEEN COOPERATIVE WITH CARES TODAY.
--- NOTE | 2020-09-26 20:33 | NUR ---
ASSUMED CARE. BEE IS DOING ALOT BETTER TODAY, MOOD HAS BEEN CALMER. HE IS MORE SLEEPY TODAY. AOX3 BUT HAS PERIODS OF FORGETFULNESS, AND STILL YELLS OUT FOR HELP AT TIMES. LUNG SOUNDS DIMINISHED BUT CLEAR. SINUS. REPORTS BEING COLD ALL THE TIME, A LOT OF COVERS ARE OVER HIM. URINE IS STILL MILKY WHITE COLOR. DENIES ANY NEEDS. CALL LIGHT WITH IN REACH.
[2020-09-27 05:48] LABS: Albumin, Blood 2.2 g/dL (3.4-5.0); Anion Gap 3 mmol/L (6-16); Blood Urea Nitrogen 51 mg/dL (8-24); Bun/Creatinine Ratio 37.8 (12.0-20.0); CO2, Blood 27 mmol/L (21-32); Calcium, Blood 9.5 mg/dL (8.5-10.1); Chloride, Blood 108 mmol/L (98-108); Creatinine, Blood 1.35 mg/dL (0.60-1.20); Glomerular Filtration Rate 54 (60-); Glucose, Blood 181 mg/dL (70-99); Phosphorus, Blood 2.2 mg/dL (2.5-4.9); Potassium, Blood 4.2 mmol/L (3.5-5.5); Sodium, Blood 138 mmol/L (136-145)
--- NOTE | 2020-09-27 07:26 | NUR ---
SHIFT SUMMARY: BEE HAD A GOOD NIGHT, MORE ORIENTED THEN THE NIGHT BEFORE. HE WAITED WHEN HE USED THE CALL LIGHT AND WAS NOT YELLING OUT TONIGHT. HE WAS ABLE TO GET UP TO THE BSC WITH SBA, URINE IS STILL MILKY YELLOW COLOR. BLOOD SUGAR WAS IN THE 120'S. SNACK WAS GIVEN LATER DUE TO LONG ACTING BEING GIVEN. VS WNL, AFEBRILE. PAIN WAS BETTER CONTROLED WITH TYLENOL. HE DID START TO HAVE A ANXIETY ATTACK AGAIN LAST NIGHT FEELING LIKE HE COULD NOT BREATH, GAVE HIM A FAN WHICH CALMED HIM RIGHT DOWN. NO OTHER CHANGES OCCURED THIS SHIFT. CALL LIGHT REMAINS IN REACH.
--- NOTE | 2020-09-27 17:55 | NUR ---
SHIFT SUMMARY- PT HAS BEEN MORE SLEEPY TODAY WHEN COMPARED TO PREVIOUS DAY. PT WORKED WITH PT AND OT. PT AMBULATES IN THE ROOM 1P SBGA WITH FWW AND GAIT BELT. PT HAS BEEN BOTH CONTINENT AND INCONTINENT. NO S&S OF DISTRESS NOTED AT THIS TIME. PT DID CALL OUT A BIT TODAY UNSURE OF WHAT WAS WRONG, SAYING HE JUST DIDN'T FEEL GOOD, VITALS STABLE TYLENOL GIVEN FOR ACHES AND PAINS AND PT SEEMED TO RELAX A LITTLE. PT CURRENTLY SITTING UP IN BED EATING DINNER. PT HAS A RAPID COVID TO COLLECT ONCE HE IS DONE WITH DINNER FOR PLACEMENT. PT TO DISCHARGE TOMORROW TO SNF PER DISCHARGE PLANNING.
[2020-09-27 19:50] LABS: Influenza A, PCR Negative (NEGATIVE); Influenza B, PCR Negative (NEGATIVE); Resp Syncytial Virus, PCR Negative (NEGATIVE); SARS-Cov-2 (COVID-19) PCR, MMC Negative (NEGATIVE)
--- NOTE | 2020-09-27 23:42 | NUR ---
09/27/20 2320 PT FREQUENTLY TRYING TO GET UP TO VOID OR "GO HOME". STAFF REORIENTED HIM FREQUENTLY. BED ALARM ON. DENIES ANY DISCOMFORT OR OTHER S/S.
[2020-09-28 05:09] LABS: Hematocrit 40.1 % (37.0-53.0)
[2020-09-28 05:32] LABS: Albumin, Blood 2.4 g/dL (3.4-5.0); Anion Gap 6 mmol/L (6-16); Blood Urea Nitrogen 41 mg/dL (8-24); Bun/Creatinine Ratio 29.1 (12.0-20.0); CO2, Blood 27 mmol/L (21-32); Calcium, Blood 9.9 mg/dL (8.5-10.1); Chloride, Blood 105 mmol/L (98-108); Creatinine, Blood 1.41 mg/dL (0.60-1.20); Glomerular Filtration Rate 51 (60-); Glucose, Blood 310 mg/dL (70-99); Magnesium, Blood 1.6 mg/dL (1.6-2.4); Phosphorus, Blood 1.7 mg/dL (2.5-4.9); Potassium, Blood 4.5 mmol/L (3.5-5.5); Sodium, Blood 138 mmol/L (136-145)
--- NOTE | 2020-09-28 06:05 | NUR ---
09/28/20 0600 STAFF HELPED PT UP TO VOID NUMERUS TIMES LAST NIGHT. PT CAN BE VERY RUDE WITH STAFF WHEN ASKED QUESTIONS OR GIVEN CARE. PT ANXIOUS AND UNABLE TO SLEEP. ATIVAN GIVEN ONCE PER MD ORDER BUT ONLY HELPED PT TO SLEEP FOR ABOUT 3 HOURS. VITALS STABLE.
--- NOTE | 2020-09-28 18:33 | NUR ---
SHIFT SUMMARY. A&OX1, IMPULSIVE, URINARY URGENCY, BED ALARM UTILIZED FOR SAFETY PT IS ONE ASSIST TO BSC. PT DENIES PAIN, SOB, N/V. NO DISTRESS OR DISCOMFORT OBSERVED. NO VISITORS TODAY. URINE CONTINUES TO BE CLOUDY AND YELLOW. POOR MEAL INTAKE, INTAKE ENCOURAGED AND SUPPLEMENT GIVEN AND OFFERED. PT FEBRILE ONCE THIS SHIFT, TEMPERATURE RESOLVED WITH APAP. NO OTHER CHANGES OR CONCERNS.
[2020-09-29 05:10] LABS: Hematocrit 34.5 % (37.0-53.0); Hemoglobin 11.4 g/dL (13.5-17.5)
[2020-09-29 05:39] LABS: Albumin, Blood 2.2 g/dL (3.4-5.0); Anion Gap 6 mmol/L (6-16); Blood Urea Nitrogen 34 mg/dL (8-24); CO2, Blood 27 mmol/L (21-32); Calcium, Blood 9.2 mg/dL (8.5-10.1); Chloride, Blood 104 mmol/L (98-108); Creatinine, Blood 1.26 mg/dL (0.60-1.20); Glomerular Filtration Rate 59 (60-); Glucose, Blood 297 mg/dL (70-99); Magnesium, Blood 1.5 mg/dL (1.6-2.4); Phosphorus, Blood 2.6 mg/dL (2.5-4.9); Sodium, Blood 137 mmol/L (136-145)
--- NOTE | 2020-09-29 18:04 | NUR ---
SHIFT SUMMARY PATIENT DENIES PAIN, NAUSEA, AND SHORTNESS OF BREATH. PATIENT UP 1X W/FWW TO BSC. VERY FREQUENT SMALL CLOUDY VOIDS ALL DAY. PATIENT NAPPING OFF AND ON DURING SHIFT. PENDING SNF DISCHARGE.
[2020-09-30 05:21] LABS: BASOPHILS ABSOLUTE AUTO 0.05 K/mm3 (0.00-0.23); BASOPHILS PERCENT AUTO 1 % (0-2); EOSINOPHILS ABSOLUTE AUTO 0.34 K/mm3 (0.00-0.68); EOSINOPHILS PERCENT AUTO 4 % (0-6); Hematocrit 33.3 % (37.0-53.0); Hemoglobin 10.8 g/dL (13.5-17.5); IMMATURE GRAN ABSOLUTE AUTO 0.05 K/mm3 (0.00-0.10); IMMATURE GRAN PERCENT AUTO 1 % (0-1); LYMPHOCYTES ABSOLUTE AUTO 1.73 K/mm3 (0.84-5.20); LYMPHOCYTES PERCENT AUTO 20 % (21-46); MONOCYTES ABSOLUTE AUTO 0.58 K/mm3 (0.16-1.47); MONOCYTES PERCENT AUTO 7 % (4-13); Mean Corpuscular HGB 28.4 pg (26.0-34.0); Mean Corpuscular HGB Conc 32.4 g/dL (31.5-36.5); Mean Corpuscular Volume 88 fL (80-100); Mean Platelet Volume 9.5 fL (9.1-12.4); NEUTROPHILS ABSOLUTE AUTO 6.02 K/mm3 (1.96-9.15); NEUTROPHILS PERCENT AUTO 69 % (41-73); Platelet Count 248 K/mm3 (150-400); RDW Coefficient Variation 13.4 % (11.7-14.2); White Blood Cell Count 8.77 K/mm3 (4.00-11.30)
[2020-09-30 05:38] LABS: Anion Gap 5 mmol/L (6-16); Blood Urea Nitrogen 31 mg/dL (8-24); Bun/Creatinine Ratio 25.8 (12.0-20.0); CO2, Blood 28 mmol/L (21-32); Calcium, Blood 8.8 mg/dL (8.5-10.1); Chloride, Blood 104 mmol/L (98-108); Glomerular Filtration Rate >60 (60-); Glucose, Blood 329 mg/dL (70-99); Phosphorus, Blood 1.9 mg/dL (2.5-4.9); Potassium, Blood 4.4 mmol/L (3.5-5.5); Sodium, Blood 137 mmol/L (136-145)
--- NOTE | 2020-09-30 05:46 | NUR ---
PARALEGAL SPECIALIST SUMMARY Patient up all night calling for food/snacks every 5-10 minutes. Urine every one to two hours. Urine is much less painful for patient since around 0300 today. Patient alert to self and surroundings in room. Color of urine is more clear, albeit orange from pyridium. Odor also seems to be less.
[2020-10-01 05:40] LABS: Hematocrit 33.3 % (37.0-53.0); Hemoglobin 10.9 g/dL (13.5-17.5)
[2020-10-01 06:01] LABS: Albumin, Blood 2.2 g/dL (3.4-5.0); Anion Gap 5 mmol/L (6-16); Blood Urea Nitrogen 29 mg/dL (8-24); Bun/Creatinine Ratio 25.7 (12.0-20.0); CO2, Blood 30 mmol/L (21-32); Calcium, Blood 9.1 mg/dL (8.5-10.1); Chloride, Blood 103 mmol/L (98-108); Creatinine, Blood 1.13 mg/dL (0.60-1.20); Glomerular Filtration Rate >60 (60-); Glucose, Blood 280 mg/dL (70-99); Magnesium, Blood 1.6 mg/dL (1.6-2.4); Phosphorus, Blood 2.3 mg/dL (2.5-4.9); Potassium, Blood 4.1 mmol/L (3.5-5.5); Sodium, Blood 138 mmol/L (136-145)
--- NOTE | 2020-10-01 07:13 | NUR ---
NETWORK INTERN SUMMARY Patient awake all night calling for snacks and other questions/requests for staff. Up independently (after being reminded to sit on the side of the bed) to bathroom. Mild temp just before shift change resolved after receiving tylenol and turning down thermostat. Pat anxious to get out of the hospital and getting quite put out with staff if they cannot immediately respond to food requests, etc. Urine looks clear and no odor noted. Still orange in color from pyridium of course
[2020-10-01] MEDS ORDERED: ACET325 PO (12:32)
[2020-10-01] MEDS ORDERED: ONDA4ODT MM (12:33)
[2020-10-01] MEDS ORDERED: PANT40 PO (12:34)
[2020-10-01] MEDS ORDERED: K-PHOS NEUTRAL PO (12:36)
--- NOTE | 2020-10-01 13:41 | NUR ---
DISCHARGE DISCHARGE MEDICATIONS AND INSTRUCTIONS EXPLAINED TO PATIENT AND PATIENT'S SON. THEY STATED UNDERSTANDING. PCP FOLLOW UP SCHEDULED. IV REMOVED WITHOUT DIFFICULTY. BELONGINGS WITH PATIENT. PATIENT TRANSFERED TO PRIVATE VEHICLE VIA WHEELCHAIR.
== END 2020-10-01 13:10 | disposition home health service (06) | DRG 682 ==
LOC: ER 19:15 → PCU 09-24 04:02 → MEDS 09-25 18:15 → ENPENDDIS 10-01 11:48 → MEDS 10-01 13:10
PROVIDERS: Emergency Medicine; Family Medicine; Internal Medicine; Internal Medicine Nephrology; ADMIT Family Medicine
DX: N17.0 Acute kidney failure with tubular necrosis (principal); J96.01 Acute respiratory failure with hypoxia; E87.1 Hypo-osmolality and hyponatremia; E87.2 Acidosis; Z20.828 Contact with and (suspected) exposure to other viral communicable diseases; E03.9 Hypothyroidism, unspecified; N13.6 Pyonephrosis; E83.39 Other disorders of phosphorus metabolism; E83.42 Hypomagnesemia; E86.0 Dehydration; E87.5 Hyperkalemia; E86.9 Volume depletion, unspecified; E87.70 Fluid overload, unspecified; E88.09 Other disorders of plasma-protein metabolism, not elsewhere classified; G31.84 Mild cognitive impairment of uncertain or unknown etiology; J44.9 Chronic obstructive pulmonary disease, unspecified; I12.9 Hypertensive chronic kidney disease with stage 1 through stage 4 chronic kidney disease, or unspecified chronic kidney disease; E11.22 Type 2 diabetes mellitus with diabetic chronic kidney disease; N18.9 Chronic kidney disease, unspecified; Z85.038 Personal history of other malignant neoplasm of large intestine; Z87.891 Personal history of nicotine dependence; I25.2 Old myocardial infarction; Z79.4 Long term (current) use of insulin; Z91.14 Patient's other noncompliance with medication regimen; E11.65 Type 2 diabetes mellitus with hyperglycemia; D64.9 Anemia, unspecified; N20.0 Calculus of kidney; I71.4 Abdominal aortic aneurysm, without rupture
CPT/HCPCS: 0241U; 36415; 51798; 74176; 76770; 80048; 80053; 80069; 81001; 82533; 82550; 82947; 83036; 83605; 83735; 84443; 84550; 85014; 85018; 85025; 87040; 87077; 87086; 87186; 93005; 93010; 96365; 96375; 97162; 97165; 97530; 97535; 99285-25; A9270; A9270-GY; J0610; J0696; J1815; J2060; J2405; J3010; J3475; J7030; J7060; J7120; J7799

== ENCOUNTER 2020-10-27 00:49 | Day surgery (SDC) | payer OTHER ==
[~2020-10-27 00:49] MED LIST changes: +ACET325 PO; +ESCI5 PO; +FUROSEMIDE40 MG PO; +K-PHOS NEUTRAL PO; +LANTUS SOL100 UNIT/1 SC; +LOSA50 PO; +METO25 PO; +NOVOLOG100 UNIT/2 SC; +ONDA4ODT MM; +PANT40 PO; +POTA10T PO; +TAMSULOSIN HCL0.4 M1 PO
[2020-10-27 12:20] LABS: BASOPHILS ABSOLUTE AUTO 0.07 K/mm3 (0.00-0.23); BASOPHILS PERCENT AUTO 1 % (0-2); EOSINOPHILS ABSOLUTE AUTO 0.11 K/mm3 (0.00-0.68); EOSINOPHILS PERCENT AUTO 1 % (0-6); Hematocrit 29.8 % (37.0-53.0); Hemoglobin 9.3 g/dL (13.5-17.5); IMMATURE GRAN ABSOLUTE AUTO 0.05 K/mm3 (0.00-0.10); IMMATURE GRAN PERCENT AUTO 1 % (0-1); LYMPHOCYTES PERCENT AUTO 22 % (21-46); MONOCYTES ABSOLUTE AUTO 0.37 K/mm3 (0.16-1.47); MONOCYTES PERCENT AUTO 4 % (4-13); Mean Corpuscular HGB 27.7 pg (26.0-34.0); Mean Corpuscular HGB Conc 31.2 g/dL (31.5-36.5); Mean Corpuscular Volume 89 fL (80-100); Mean Platelet Volume 8.7 fL (9.1-12.4); NEUTROPHILS ABSOLUTE AUTO 7.09 K/mm3 (1.96-9.15); NEUTROPHILS PERCENT AUTO 72 % (41-73); Platelet Count 439 K/mm3 (150-400); RDW Coefficient Variation 14.6 % (11.7-14.2); RDW Standard Deviation 46.5 fL (35.1-46.3); Red Blood Cell Count 3.36 M/mm3 (4.30-5.90); White Blood Cell Count 9.79 K/mm3 (4.00-11.30)
[2020-10-27 12:38] LABS: Alanine Aminotransfer (ALT/SGP 28 U/L (12-78); Albumin, Blood 2.1 g/dL (3.4-5.0); Albumin/Globulin Ratio 0.4 (0.8-1.8); Alk Phos 368 U/L (50-136); Anion Gap 4 mmol/L (6-16); Aspartate Aminotrans (AST/SGOT 26 U/L (12-37); Bilirubin, Total 0.4 mg/dL (0.1-1.0); Blood Urea Nitrogen 22 mg/dL (8-24); Bun/Creatinine Ratio 23.8 (12.0-20.0); CO2, Blood 36 mmol/L (21-32); Calcium, Blood 9.6 mg/dL (8.5-10.1); Chloride, Blood 102 mmol/L (98-108); Creatinine, Blood 0.93 mg/dL (0.60-1.20); Globulin, Blood 4.9 g/dL (2.2-4.0); Glomerular Filtration Rate >60 (60-); Glucose, Blood 101 mg/dL (70-99); Potassium, Blood 3.5 mmol/L (3.5-5.5); Sodium, Blood 142 mmol/L (136-145)
--- NOTE | 2020-10-27 13:36 | NUR ---
LAB RESULTS FAXED TO DR COOK PER ORDER
== END 2020-10-27 12:10 | disposition home or self-care (01) ==
LOC: ATC 00:49
PROVIDERS: Internal Medicine Infectious Disease
DX: B37.7 Candidal sepsis (principal); N45.4 Abscess of epididymis or testis; E11.9 Type 2 diabetes mellitus without complications; I10 Essential (primary) hypertension; Z79.82 Long term (current) use of aspirin; Z79.4 Long term (current) use of insulin; Z88.8 Allergy status to other drugs, medicaments and biological substances
CPT/HCPCS: 80053; 85025; J2248

== ENCOUNTER 2020-10-28 00:22 | Day surgery (SDC) | payer OTHER | END 2020-10-28 15:57 | disposition home or self-care (01) | LOC: ATC 00:22 | DX: B37.7 Candidal sepsis (principal); N45.4 Abscess of epididymis or testis; E11.9 Type 2 diabetes mellitus without complications; I10 Essential (primary) hypertension; Z79.4 Long term (current) use of insulin; Z79.899 Other long term (current) drug therapy; Z88.8 Allergy status to other drugs, medicaments and biological substances | CPT/HCPCS: J2248 ==

== ENCOUNTER 2020-10-30 08:32 | Day surgery (SDC) | payer OTHER | END 2020-10-30 12:15 | disposition home or self-care (01) | LOC: ATC 08:32 | DX: B37.7 Candidal sepsis (principal); N45.4 Abscess of epididymis or testis; E11.9 Type 2 diabetes mellitus without complications; I10 Essential (primary) hypertension; Z79.4 Long term (current) use of insulin; Z79.82 Long term (current) use of aspirin; Z79.899 Other long term (current) drug therapy; Z88.8 Allergy status to other drugs, medicaments and biological substances; Z20.828 Contact with and (suspected) exposure to other viral communicable diseases | CPT/HCPCS: 96365; J2248 ==

== ENCOUNTER 2020-10-31 05:36 | Day surgery (SDC) | payer OTHER | END 2020-10-31 14:50 | disposition home or self-care (01) | LOC: ATC 05:36 | DX: B37.7 Candidal sepsis (principal); N45.4 Abscess of epididymis or testis; E11.9 Type 2 diabetes mellitus without complications; I10 Essential (primary) hypertension; Z79.4 Long term (current) use of insulin; Z79.82 Long term (current) use of aspirin; Z79.899 Other long term (current) drug therapy; Z88.8 Allergy status to other drugs, medicaments and biological substances; Z20.828 Contact with and (suspected) exposure to other viral communicable diseases | CPT/HCPCS: 96365; J2248 ==

== ENCOUNTER 2020-11-01 00:07 | Day surgery (SDC) | payer OTHER | END 2020-11-01 11:18 | disposition home or self-care (01) | LOC: ATC 00:07 | DX: B37.7 Candidal sepsis (principal); N45.4 Abscess of epididymis or testis; E11.9 Type 2 diabetes mellitus without complications; I10 Essential (primary) hypertension; Z79.82 Long term (current) use of aspirin; Z79.4 Long term (current) use of insulin | CPT/HCPCS: 96365; J2248 ==

== ENCOUNTER 2020-11-02 10:15 | Day surgery (SDC) | payer OTHER | END 2020-11-02 11:50 | disposition home or self-care (01) | LOC: ATC 10:15 | DX: B37.7 Candidal sepsis (principal); N45.4 Abscess of epididymis or testis; E11.9 Type 2 diabetes mellitus without complications; I10 Essential (primary) hypertension; Z79.82 Long term (current) use of aspirin; Z79.4 Long term (current) use of insulin; Z79.899 Other long term (current) drug therapy; Z88.8 Allergy status to other drugs, medicaments and biological substances | CPT/HCPCS: J2248 ==

== ENCOUNTER 2020-11-03 00:29 | Day surgery (SDC) | payer OTHER ==
[2020-11-03 11:18] LABS: BASOPHILS ABSOLUTE AUTO 0.14 K/mm3 (0.00-0.23); BASOPHILS PERCENT AUTO 2 % (0-2); EOSINOPHILS ABSOLUTE AUTO 0.32 K/mm3 (0.00-0.68); EOSINOPHILS PERCENT AUTO 5 % (0-6); Hematocrit 32.1 % (37.0-53.0); Hemoglobin 10.1 g/dL (13.5-17.5); IMMATURE GRAN ABSOLUTE AUTO 0.04 K/mm3 (0.00-0.10); IMMATURE GRAN PERCENT AUTO 1 % (0-1); LYMPHOCYTES ABSOLUTE AUTO 2.33 K/mm3 (0.84-5.20); LYMPHOCYTES PERCENT AUTO 35 % (21-46); MONOCYTES ABSOLUTE AUTO 0.28 K/mm3 (0.16-1.47); MONOCYTES PERCENT AUTO 4 % (4-13); Mean Corpuscular HGB 28.3 pg (26.0-34.0); Mean Corpuscular HGB Conc 31.5 g/dL (31.5-36.5); Mean Corpuscular Volume 90 fL (80-100); Mean Platelet Volume 8.7 fL (9.1-12.4); NEUTROPHILS ABSOLUTE AUTO 3.55 K/mm3 (1.96-9.15); NEUTROPHILS PERCENT AUTO 53 % (41-73); Platelet Count 392 K/mm3 (150-400); RDW Coefficient Variation 15.7 % (11.7-14.2); RDW Standard Deviation 51.7 fL (35.1-46.3); Red Blood Cell Count 3.57 M/mm3 (4.30-5.90); White Blood Cell Count 6.66 K/mm3 (4.00-11.30)
[2020-11-03 11:37] LABS: Alanine Aminotransfer (ALT/SGP 25 U/L (12-78); Albumin, Blood 2.5 g/dL (3.4-5.0); Albumin/Globulin Ratio 0.5 (0.8-1.8); Alk Phos 268 U/L (50-136); Anion Gap 4 mmol/L (6-16); Aspartate Aminotrans (AST/SGOT 26 U/L (12-37); Bilirubin, Total 0.3 mg/dL (0.1-1.0); Blood Urea Nitrogen 28 mg/dL (8-24); Bun/Creatinine Ratio 27.7 (12.0-20.0); CO2, Blood 36 mmol/L (21-32); Calcium, Blood 8.8 mg/dL (8.5-10.1); Chloride, Blood 101 mmol/L (98-108); Creatinine, Blood 1.01 mg/dL (0.60-1.20); Globulin, Blood 4.7 g/dL (2.2-4.0); Glomerular Filtration Rate >60 (60-); Glucose, Blood 97 mg/dL (70-99); Potassium, Blood 3.7 mmol/L (3.5-5.5); Sodium, Blood 141 mmol/L (136-145); Total Protein, Blood 7.2 g/dL (6.4-8.2)
== END 2020-11-03 11:35 | disposition home or self-care (01) ==
LOC: ATC 00:29
PROVIDERS: Internal Medicine Infectious Disease
DX: B37.7 Candidal sepsis (principal); N45.4 Abscess of epididymis or testis; E11.9 Type 2 diabetes mellitus without complications; Z79.82 Long term (current) use of aspirin; Z79.899 Other long term (current) drug therapy; Z79.4 Long term (current) use of insulin; Z88.8 Allergy status to other drugs, medicaments and biological substances
CPT/HCPCS: 80053; 85025; J2248

== ENCOUNTER 2020-11-05 00:16 | Day surgery (SDC) | payer OTHER | END 2020-11-05 12:10 | disposition home or self-care (01) | LOC: ATC 00:16 | DX: B37.7 Candidal sepsis (principal); N45.4 Abscess of epididymis or testis; E11.9 Type 2 diabetes mellitus without complications; I10 Essential (primary) hypertension; Z79.899 Other long term (current) drug therapy; Z79.4 Long term (current) use of insulin; Z88.8 Allergy status to other drugs, medicaments and biological substances; Z20.828 Contact with and (suspected) exposure to other viral communicable diseases | CPT/HCPCS: J2248 ==

== ENCOUNTER 2020-11-06 00:20 | Day surgery (SDC) | payer OTHER | END 2020-11-06 11:30 | disposition home or self-care (01) | LOC: ATC 00:20 | DX: B37.7 Candidal sepsis (principal); N45.4 Abscess of epididymis or testis; E11.9 Type 2 diabetes mellitus without complications; I10 Essential (primary) hypertension; Z79.899 Other long term (current) drug therapy; Z79.82 Long term (current) use of aspirin; Z79.4 Long term (current) use of insulin; Z88.8 Allergy status to other drugs, medicaments and biological substances; Z20.828 Contact with and (suspected) exposure to other viral communicable diseases | CPT/HCPCS: 96365; J2248 ==

== ENCOUNTER → 2021-04-17 | Outpatient (CLI) | payer OTHER | END | disposition home or self-care (01) | LOC: LAB 18:04 → LAB SHORT 18:04 | DX: Z46.6 Encounter for fitting and adjustment of urinary device (principal); N39.0 Urinary tract infection, site not specified | CPT/HCPCS: 87077; 87086; 87147; 87186 ==

== ENCOUNTER 2021-08-30 08:51 | Emergency (ER) | payer OTHER ==
[~2021-08-30] VITALS: Ht 177.8 cm; Wt 72.6 kg
[2021-08-30 09:24] LABS: BASOPHILS ABSOLUTE AUTO 0.03 K/mm3 (0.00-0.23); BASOPHILS PERCENT AUTO 0 % (0-2); EOSINOPHILS PERCENT AUTO 0 % (0-6); Hematocrit 39.3 % (37.0-53.0); Hemoglobin 13.6 g/dL (13.5-17.5); IMMATURE GRAN ABSOLUTE AUTO 0.06 K/mm3 (0.00-0.10); IMMATURE GRAN PERCENT AUTO 0 % (0-1); LYMPHOCYTES ABSOLUTE AUTO 0.95 K/mm3 (0.84-5.20); LYMPHOCYTES PERCENT AUTO 7 % (21-46); MONOCYTES ABSOLUTE AUTO 0.82 K/mm3 (0.16-1.47); MONOCYTES PERCENT AUTO 6 % (4-13); Mean Corpuscular HGB 28.5 pg (26.0-34.0); Mean Corpuscular HGB Conc 34.6 g/dL (31.5-36.5); Mean Corpuscular Volume 82 fL (80-100); Mean Platelet Volume 9.7 fL (9.1-12.4); NEUTROPHILS ABSOLUTE AUTO 12.24 K/mm3 (1.96-9.15); NEUTROPHILS PERCENT AUTO 87 % (41-73); Platelet Count 263 K/mm3 (150-400); RDW Coefficient Variation 13.2 % (11.7-14.2); RDW Standard Deviation 39.4 fL (35.1-46.3); Red Blood Cell Count 4.78 M/mm3 (4.30-5.90)
[2021-08-30 09:34] LABS: Source, Urine Catheter
[2021-08-30 09:41] LABS: Appearance, Urine Turbid (Clear); Bilirubin, Urine Neg (Neg); Blood, Urine 5+ (Neg); Color, Urine Amber (P-Yellow); Glucose Qualitative, Urine 4+ (Neg); Ketones, Urine 2+ (Neg); Leukocyte Esterase, Urine 3+ (Neg); Nitrite, Urine Pos (Neg); Protein, Urine 3+ (Neg); Specific Gravity, Urine 1.015 (1.003-1.022); Urobilinogen, Urine NORM (Normal)
[2021-08-30 09:44] LABS: Albumin, Blood 2.9 g/dL (3.4-5.0); Albumin/Globulin Ratio 0.6 (0.8-1.8); Bilirubin, Total 0.6 mg/dL (0.1-1.0); Bun/Creatinine Ratio 25.4 (12.0-20.0); Calcium, Blood 9.4 mg/dL (8.5-10.1); Creatinine, Blood 1.81 mg/dL (0.60-1.20); Globulin, Blood 4.5 g/dL (2.2-4.0); Potassium, Blood 3.9 mmol/L (3.5-5.5); Total Protein, Blood 7.4 g/dL (6.4-8.2)
[2021-08-30 10:15] LABS: White Blood Cells, Urine TNTC /hpf (0-5)
[2021-08-30 10:17] LABS: Bacteria Many /hpf; Squamous Epithelial Cells Not Seen /hpf (Few)
[2021-08-30] MEDS ORDERED: CEFD300 PO (11:09)
== END 2021-08-30 11:31 | disposition home or self-care (01) ==
LOC: ER 08:51
PROVIDERS: Emergency Medicine
DX: E11.65 Type 2 diabetes mellitus with hyperglycemia (principal); N39.0 Urinary tract infection, site not specified; N28.9 Disorder of kidney and ureter, unspecified; E03.9 Hypothyroidism, unspecified; J44.9 Chronic obstructive pulmonary disease, unspecified; I25.2 Old myocardial infarction; Z87.891 Personal history of nicotine dependence; Z88.8 Allergy status to other drugs, medicaments and biological substances; Z79.4 Long term (current) use of insulin; Z79.84 Long term (current) use of oral hypoglycemic drugs; Z79.899 Other long term (current) drug therapy; W19.XXXA Unspecified fall, initial encounter
CPT/HCPCS: 36415; 80053; 81001; 82947; 85025; 87077; 87086; 87186; 93005; 93010; 99284-25; A9270; J1815; J7030

== ENCOUNTER 2021-09-09 16:36 | Inpatient (IN) | payer OTHER ==
[~2021-09-09] VITALS: Ht 175.3 cm; Wt 68.3 kg
[~2021-09-09 16:36] MED LIST changes: +CEFD300 PO; +METF500C PO
[2021-09-09 17:13] LABS: BASOPHILS ABSOLUTE AUTO 0.05 K/mm3 (0.00-0.23); BASOPHILS PERCENT AUTO 0 % (0-2); EOSINOPHILS ABSOLUTE AUTO 0.06 K/mm3 (0.00-0.68); EOSINOPHILS PERCENT AUTO 0 % (0-6); Hematocrit 37.9 % (37.0-53.0); IMMATURE GRAN ABSOLUTE AUTO 0.11 K/mm3 (0.00-0.10); IMMATURE GRAN PERCENT AUTO 1 % (0-1); LYMPHOCYTES ABSOLUTE AUTO 1.15 K/mm3 (0.84-5.20); LYMPHOCYTES PERCENT AUTO 6 % (21-46); MONOCYTES ABSOLUTE AUTO 0.56 K/mm3 (0.16-1.47); MONOCYTES PERCENT AUTO 3 % (4-13); Mean Corpuscular HGB 28.6 pg (26.0-34.0); Mean Corpuscular HGB Conc 34.3 g/dL (31.5-36.5); Mean Corpuscular Volume 84 fL (80-100); Mean Platelet Volume 9.5 fL (9.1-12.4); NEUTROPHILS ABSOLUTE AUTO 16.73 K/mm3 (1.96-9.15); NEUTROPHILS PERCENT AUTO 90 % (41-73); Platelet Count 343 K/mm3 (150-400); RDW Coefficient Variation 13.7 % (11.7-14.2); RDW Standard Deviation 41.8 fL (35.1-46.3); Red Blood Cell Count 4.54 M/mm3 (4.30-5.90); White Blood Cell Count 18.66 K/mm3 (4.00-11.30)
[2021-09-09 17:18] LABS: Source, Urine Catheter
[2021-09-09 17:23] LABS: Appearance, Urine Hazy (Clear); Bilirubin, Urine Neg (Neg); Blood, Urine 5+ (Neg); Color, Urine Yellow (P-Yellow); Glucose Qualitative, Urine 4+ (Neg); Ketones, Urine 2+ (Neg); Leukocyte Esterase, Urine 3+ (Neg); Nitrite, Urine Pos (Neg); Protein, Urine 3+ (Neg); Specific Gravity, Urine 1.015 (1.003-1.022); Urobilinogen, Urine NORM (Normal)
[2021-09-09 17:29] LABS: Alanine Aminotransfer (ALT/SGP 72 U/L (12-78); Albumin, Blood 2.3 g/dL (3.4-5.0); Albumin/Globulin Ratio 0.5 (0.8-1.8); Alk Phos 312 U/L (50-136); Anion Gap 9 mmol/L (6-16); Aspartate Aminotrans (AST/SGOT 27 U/L (12-37); Bilirubin, Total 0.8 mg/dL (0.1-1.0); Blood Urea Nitrogen 48 mg/dL (8-24); Bun/Creatinine Ratio 36.1 (12.0-20.0); CO2, Blood 24 mmol/L (21-32); Calcium, Blood 9.7 mg/dL (8.5-10.1); Chloride, Blood 103 mmol/L (98-108); Creatinine, Blood 1.33 mg/dL (0.60-1.20); Glomerular Filtration Rate 52 (60-); Glucose, Blood 363 mg/dL (70-99); Potassium, Blood 4.1 mmol/L (3.5-5.5); Sodium, Blood 136 mmol/L (136-145); Total Protein, Blood 7.3 g/dL (6.4-8.2)
[2021-09-09 17:52] LABS: White Blood Cells, Urine 50-100 /hpf (0-5)
[2021-09-09 17:53] LABS: Amorphous Light (0-Heavy); Bacteria Many /hpf; Mucus Light (0-Heavy); Squamous Epithelial Cells Rare /hpf (Few)
[2021-09-09 17:54] LABS: Granular Casts 0-2 /lpf (0)
[2021-09-10 01:42] LABS: Influenza A, PCR NEGATIVE (NEGATIVE); Influenza B, PCR NEGATIVE (NEGATIVE); Resp Syncytial Virus, PCR NEGATIVE (NEGATIVE); SARS-Cov-2 (COVID-19) PCR, MMC NEGATIVE (NEGATIVE)
[2021-09-10 05:20] LABS: Source, Urine Catheter
[2021-09-10 05:32] LABS: Appearance, Urine Clear (Clear); Bilirubin, Urine Neg (Neg); Blood, Urine 4+ (Neg); Color, Urine Yellow (P-Yellow); Glucose Qualitative, Urine 4+ (Neg); Ketones, Urine Neg (Neg); Leukocyte Esterase, Urine 2+ (Neg); Nitrite, Urine Neg (Neg); Protein, Urine 2+ (Neg); Urobilinogen, Urine NORM (Normal)
[2021-09-10 05:35] LABS: Bacteria Mod /hpf; Squamous Epithelial Cells Not Seen /hpf (Few); White Blood Cells, Urine 25-50 /hpf (0-5)
[2021-09-10 05:49] LABS: Anion Gap 6 mmol/L (6-16); Blood Urea Nitrogen 38 mg/dL (8-24); Bun/Creatinine Ratio 33.9 (12.0-20.0); CO2, Blood 27 mmol/L (21-32); Calcium, Blood 9.4 mg/dL (8.5-10.1); Chloride, Blood 106 mmol/L (98-108); Creatinine, Blood 1.12 mg/dL (0.60-1.20); Glomerular Filtration Rate >60 (60-); Glucose, Blood 317 mg/dL (70-99); Potassium, Blood 3.5 mmol/L (3.5-5.5); Sodium, Blood 139 mmol/L (136-145)
[2021-09-10 11:42] LABS: BASOPHILS ABSOLUTE AUTO 0.05 K/mm3 (0.00-0.23); BASOPHILS PERCENT AUTO 0 % (0-2); EOSINOPHILS ABSOLUTE AUTO 0.25 K/mm3 (0.00-0.68); EOSINOPHILS PERCENT AUTO 2 % (0-6); Hematocrit 33.9 % (37.0-53.0); Hemoglobin 11.9 g/dL (13.5-17.5); IMMATURE GRAN ABSOLUTE AUTO 0.12 K/mm3 (0.00-0.10); IMMATURE GRAN PERCENT AUTO 1 % (0-1); LYMPHOCYTES ABSOLUTE AUTO 1.53 K/mm3 (0.84-5.20); LYMPHOCYTES PERCENT AUTO 9 % (21-46); MONOCYTES PERCENT AUTO 3 % (4-13); Mean Corpuscular HGB 29.2 pg (26.0-34.0); Mean Corpuscular HGB Conc 35.1 g/dL (31.5-36.5); Mean Corpuscular Volume 83 fL (80-100); Mean Platelet Volume 9.4 fL (9.1-12.4); NEUTROPHILS ABSOLUTE AUTO 14.53 K/mm3 (1.96-9.15); NEUTROPHILS PERCENT AUTO 86 % (41-73); Platelet Count 322 K/mm3 (150-400); RDW Coefficient Variation 13.6 % (11.7-14.2); RDW Standard Deviation 40.8 fL (35.1-46.3); Red Blood Cell Count 4.08 M/mm3 (4.30-5.90); White Blood Cell Count 16.98 K/mm3 (4.00-11.30)
--- NOTE | 2021-09-10 14:19 | NUR ---
80 year old male to the hospital for TIA. Pt's medical history and comorbidities include: Dementia, DM2, Colon Cancer, Hernia, Hypothyroidism, COPD, NSTEMI, and Falls. Reviewed chart and discussed case with Care Coordinators Saeid and Xochilt. Son has been working with [employer] for placement for Pt. Currently [employer] and Care Coordinators have reached out to [facility] but have not received return phone call. Son's goal is placement with hospice services. Called and spoke with Dr Reed. Discussed case. Called and spoke with Pt's son Carlos. Engaged in therapeutic listening as Carlos reports seeing a significant decline in Pt's functional ability over the last year. Over the last month Pt has seen the most decline. Pt requires assistance with bathing, dressing, transfers, and is incontinent of bowel and bladder. Pt has a chronic Ramsay Catheter. Carlos reports Pt's appetite is poor and he has lost approximately 20 pounds in the last 6 months. Carlos states meaningful conversations have been few and far between. Pt has been bed bound for the last week. Carlos reports Pt's spouse is also needing placement with hospice due to terminal cancer. [employer] is currently assisting with this as well. Pt often will yell and scream out with unknown reasons. Carlos confirms Pt would want to focus on comfort and quality of life at this point in his life. He states hospice is the goal. Carlos expresses appreciation and reports no other concerns at this time. PPS 30% ADLs 5/6 FAST 7C Albumin 2.3 Pt appears to qualify for hospice with family agreeable to services. Palliative Care will remain available.
--- NOTE | 2021-09-10 15:12 | NUR ---
RECIEVED REPORT FROM COURTNEY LEWIS RN @ [phone]. PATIENT ARRIVED TO ROOM 362 @ 5644 AND WAS TRANSFERED TO HOSPITAL BED WITH THE ASSISTANCE OF THREE STAFF MEMBERS.
--- NOTE | 2021-09-10 15:42 | NUR ---
PATIENT IS ORIENTED TO SELF ONLY. SKIN IS VERY BROKEN DOWN. BUTTOCKS HAVE SEVERAL WOUNDS THAT ALL RUN TOGETHER. SCATTERED SCABS AND BRUISING EVERYWHERE. WOUND TO SHAFT OF PENIS WITH NOTED SLOUGH TO WOUND BED; PICS IN CHART. ASSESSMENT COMPLETED TO BEST OF MY ABILITY WITH REFERENCE TO H&P FOR INFO. PATIENT IN BED RESTING AT THIS TIME; CALL LIGHT IN REACH,.
--- NOTE | 2021-09-10 17:10 | NUR ---
SHIFT SUMMARY PATIENT TO THE FLOOR MID AFTERNOON. PATIENT ALERT ONLY TO SELF UPON ARRIVAL. PATIENT UNABLE TO ASSIST WITH ADMISSION HISTORY. SPEACH THERAPY IN TO SEE PATIENT SHORTLY AFTER ARRIVAL TO THE FLOOR. PATIENT HAS A VERY EXCORIATED BUTTOX, ALONG WITH AN APPROXIMATELY 2 CM SORE ON HIS PENIS. PATIENT ORIENTED TO ROOM AND MADE COMFORTABLE. PATIENT CURRENTLY LYING IN BED RESTING.
--- NOTE | 2021-09-11 02:16 | NUR ---
RECEIVED PT IN BED CONFUSED, YELLING, AND ATTEMPTING TO GET OOB AT TIMES. PT IS AT HIGH RISK FOR FALLS. NEEDS FREQUENT REDIRECTIONS. MEDICATED WITH ZYPREXA PRN PER ORDER. WILL CONTINUE TO MONITOR. BED ALARM EXIT ON.
--- NOTE | 2021-09-11 04:27 | NUR ---
PT HAS BEEN AWAKE MOST OF THE SHIFT ANXIOUS, RESTLESS, CONFUSED. ATTEMPTED TO GET OOB SEVERAL TIMES. HARD TO REDIRECT. ZYPREXA IM GIVEN PRN. PT BECAME LESS AGITATED BUT REMAINED ANXIOUS. CALLING NAMES AND ASKING TO GO HOME. TURNED AND REPOSITIONED FOR COMFORT. ATTENDS IN PLACE. MACHADO PATENT. BED ALARM EXIT ON.
[2021-09-11 05:00] LABS: BASOPHILS ABSOLUTE AUTO 0.05 K/mm3 (0.00-0.23); BASOPHILS PERCENT AUTO 0 % (0-2); EOSINOPHILS ABSOLUTE AUTO 0.27 K/mm3 (0.00-0.68); EOSINOPHILS PERCENT AUTO 2 % (0-6); Hematocrit 37.7 % (37.0-53.0); IMMATURE GRAN ABSOLUTE AUTO 0.07 K/mm3 (0.00-0.10); IMMATURE GRAN PERCENT AUTO 1 % (0-1); LYMPHOCYTES PERCENT AUTO 16 % (21-46); MONOCYTES ABSOLUTE AUTO 0.45 K/mm3 (0.16-1.47); MONOCYTES PERCENT AUTO 4 % (4-13); Mean Corpuscular HGB 28.7 pg (26.0-34.0); Mean Corpuscular HGB Conc 34.5 g/dL (31.5-36.5); Mean Corpuscular Volume 83 fL (80-100); Mean Platelet Volume 9.4 fL (9.1-12.4); NEUTROPHILS ABSOLUTE AUTO 9.48 K/mm3 (1.96-9.15); NEUTROPHILS PERCENT AUTO 77 % (41-73); Platelet Count 340 K/mm3 (150-400); RDW Coefficient Variation 13.4 % (11.7-14.2); RDW Standard Deviation 40.6 fL (35.1-46.3); Red Blood Cell Count 4.53 M/mm3 (4.30-5.90); White Blood Cell Count 12.32 K/mm3 (4.00-11.30)
[2021-09-11 05:29] LABS: Anion Gap 6 mmol/L (6-16); Blood Urea Nitrogen 26 mg/dL (8-24); Bun/Creatinine Ratio 27.2 (12.0-20.0); CO2, Blood 28 mmol/L (21-32); Calcium, Blood 9.6 mg/dL (8.5-10.1); Chloride, Blood 104 mmol/L (98-108); Creatinine, Blood 0.96 mg/dL (0.60-1.20); Glomerular Filtration Rate >60 (60-); Glucose, Blood 165 mg/dL (70-99); Phosphorus, Blood 1.9 mg/dL (2.5-4.9); Potassium, Blood 3.2 mmol/L (3.5-5.5); Sodium, Blood 138 mmol/L (136-145)
--- NOTE | 2021-09-11 11:26 | NUR ---
Pt resting in bed with his eyes closed. Pt appears comfortable with no S/S of distress at this time. Pt left undisturbed. Reviewed chart and discussed case with Primary RN Mariia. Discussed plan for Pt to D/C to facility with hospice. Palliative Care will remain available.
--- NOTE | 2021-09-11 15:36 | NUR ---
PATIENT ALERT AND ORIENTED TO SELF ONLY. CONFUSED AND FORGETFUL. NEEDS MUCH REDIRECTION. VITALS STABLE. RECIEVING IV ABX WITHOUT S/SX ADVERSE REACTIONS NOTED OR REPORTED THIS SHIFT. PATIENT GIVEN BEDBATH EARLIER TODAY. TWO PERSON MAX ASSIST WITH TRANSFERS. BARRIER CREAM APPLIED TO BUTTOCKS AND WOUND ON PENIS TWICE THIS SHIFT. PATIENT RESTING IN BED AT THIS TIME WITH CALL LIGHT IN REACH.
--- NOTE | 2021-09-12 06:35 | NUR ---
SHIFT SUMMARY PATIENT ALERT AND ORIENTED TO SELF. MEDICATED PER EMAR FOR AGITATION. SLEPT ALL NIGHT AFTER. NO ACUTE ISSUES NOTED. BED IN LOWEST POSITION WITH WHEELS LOCKED AND ALARM ON. CALL LIGHT WITHIN REACH. REPORT GIVEN TO ONCOMING RN.
--- NOTE | 2021-09-12 08:00 | NUR ---
PT RESTING WITH EYES CLOSED, NO S/S OF DISTRSESS. MUSIC PLAYING, CALL LIGHT WITHIN REACH AND BED IN LOWEST POSITION.
--- NOTE | 2021-09-12 10:00 | NUR ---
PT RESTING WITH EYES CLOSED, DID NOT WAKE FOR BREAKFAST. NO S/S OF DISTRESS. SON WAS IN AT BEDSIDE, NOW MEETING [facility] DEPARTMENT SPECIALIST TO DISCUSS D/ PLANS. CALL LIGHT WITHIN PT REACH, BED IN LOWEST POSITION.
--- NOTE | 2021-09-12 10:22 | NUR ---
Comfort Care Visit Pt resting in bed with his eyes closed. No non verbal indicators of distress at this time. Pt left undisturbed. Spoke with Primary RN Kaitlin and discussed case. Pt experienced agitation and anxiety last night. Pattern starting to evolve. Called and spoke with Dr Noble. Discussed case and placed order for Seroquel 50mg at bedtime per V/O from Dr Noble. Palliative Care will remain available.
--- NOTE | 2021-09-12 10:47 | NUR ---
PT RESTING WITH EYES CLOSED, NO S/S OF DISTRSESS. MUSIC PLAYING, CALL LIGHT WITHIN REACH AND BED IN LOWEST POSITION.
--- NOTE | 2021-09-12 10:48 | NUR ---
PT RESTING WITH EYES CLOSED, DID NOT WAKE FOR BREAKFAST. NO S/S OF DISTRESS. SON WAS IN AT BEDSIDE, NOW MEETING [facility] FISHING CAPTAIN TO DISCUSS D/ PLANS. CALL LIGHT WITHIN PT REACH, BED IN LOWEST POSITION.
--- NOTE | 2021-09-12 12:00 | NUR ---
PT RESTING WITH EYES CLOSED. ATTEMPTED TO WAKE PT FOR LUNCH AND PT DID REFUSED LUNCH. NO OTHER C/O OF DISCOMFORT. CALL LIGHT WITHIN REACH AND BED IN LOWEST POSITION
--- NOTE | 2021-09-12 14:00 | NUR ---
NO CHANGES, PT REMAINS RESTING IN BED WITH NO S/S OF DISCOMFORT.
--- NOTE | 2021-09-12 16:00 | NUR ---
PT WOKE UP CALLING OUT FOR HELP. RN IN TO ASSESS AND PT C/O PAIN AND THIRST. MEDICATED PER EMAR, ICE WATER GIVEN. PT CONSUMMED TO CARTONS OF JUICE, 2 PUDDINGS. 1 CUP OF ICE WATER AND A CHOCOLATE ENSURE. PT VERY PLEASANT WITH CARE.
--- NOTE | 2021-09-12 17:20 | NUR ---
NO CHANGES, PT REMAINS RESTING IN BED WITH NO S/S OF DISCOMFORT.
--- NOTE | 2021-09-12 18:00 | NUR ---
80 Y MALE ADMITTED WIHT TIA, SEPSIS, UTI, DEMENTIA AND A HX OF ANEMIA, DM, HTN, AND COPD. COMFORT CARE WAS INITIATED YESTERDAY AND D/C PLANS ARE FOR PT TO GO TO [facility] TOMORROW AT 10:30AM. PT HAS SLEPT MOST OF THE DAY AND REFUSED BREAKFAST AND LUNCH. NO OTHER CHANGES THIS SHIFT.
--- NOTE | 2021-09-12 18:00 | NUR ---
SHIFT SUMMARY 80 Y MALE ADMITTED WIHT TIA, SEPSIS, UTI, DEMENTIA AND A HX OF ANEMIA, DM, HTN, AND COPD. COMFORT CARE WAS INITIATED YESTERDAY AND D/C PLANS ARE FOR PT TO GO TO [facility] TOMORROW @1030AM. PT HAS SLEPT MOST OF THE DAY AND REFUSED BREAKFAST AND LUNCH. NO OTHER CHANGES THIS SHIFT.
--- NOTE | 2021-09-13 05:28 | NUR ---
SHIFT SUMMARY PATIENT ALERT AND ORIENTED TO SELF. MEDICATED PER EMAR FOR PAIN. NO ACUTE ISSUES NOTED OVERNIGHT. BED IN LOWEST POSITION WITH WHEELS LOCKED AND ALARM ON. CALL LIGHT WITHIN REACH. REPORT GIVEN TO ONCOMING RN.
--- NOTE | 2021-09-13 08:00 | NUR ---
PT CALLING OUT FROM BED "HELP ME", RN IN TO ASSESS, PT C/O PAIN AND WAS MEDICATED PER EMAR. PT OFFERED WATER AND JUICE AND ASSISTED WITH REPOSITIONING AND ORAL CARE. LEFT PT RESTING COMFORTABLY IN BED, CALL LIGHT WITHIN REACH.
[2021-09-13 08:52] LABS: SARS-Cov-2 (COVID-19) PCR, MMC NEGATIVE (NEGATIVE)
--- NOTE | 2021-09-13 10:00 | NUR ---
PT RESTING WITH EYES CLOSED, NO S/S OF DISTRESS. PT REPOSITIONED TO L SIDE, IV REMOVED INTACT. PT TOLERATED WELL CALL LIGHT WITHIN REACH AND BED IN LOWEST POSITION.
--- NOTE | 2021-09-13 11:05 | NUR ---
PT RESTING WITH EYES CLOSED, NO S/S OF DISTRESS. PT REPOSITIONED TO R SIDE, CALL LIGHT WITHIN REACH AND BED IN LOWEST POSITION.
--- NOTE | 2021-09-13 11:51 | NUR ---
DISCHARGE NOTE ORDERS REVIEVED AND IMPLEMENTED FOR PT TO D/C TO [facility]. COVID TEST COLLECTED AND WAS NEGATIVE. ATTEMPTED TO CALL REPORT TO [facility] RN AND LEFT MESSAGE. PT TRANSFERRED TO [facility] AND TRANSPORTED TO [facility] BY [facility].
== END 2021-09-13 11:48 | disposition hospice, inpatient (51) | DRG 69 ==
LOC: ER 16:36 → ERHOLD 16:37 → MEDS 09-10 14:52
PROVIDERS: Emergency Medicine; Family Medicine; Internal Medicine; ADMIT Internal Medicine
DX: G45.9 Transient cerebral ischemic attack, unspecified (principal); G92.8 Other toxic encephalopathy; R65.10 Systemic inflammatory response syndrome (SIRS) of non-infectious origin without acute organ dysfunction; E11.9 Type 2 diabetes mellitus without complications; Z66 Do not resuscitate; E03.9 Hypothyroidism, unspecified; Z51.5 Encounter for palliative care; J44.9 Chronic obstructive pulmonary disease, unspecified; Z20.822 Contact with and (suspected) exposure to COVID-19; D72.829 Elevated white blood cell count, unspecified; F03.90 Unspecified dementia, unspecified severity, without behavioral disturbance, psychotic disturbance, mood disturbance, and anxiety; D63.8 Anemia in other chronic diseases classified elsewhere; I10 Essential (primary) hypertension; L89.301 Pressure ulcer of unspecified buttock, stage 1; I25.2 Old myocardial infarction; Z88.8 Allergy status to other drugs, medicaments and biological substances; Z85.038 Personal history of other malignant neoplasm of large intestine; Z90.49 Acquired absence of other specified parts of digestive tract; Z98.890 Other specified postprocedural states; Z79.4 Long term (current) use of insulin; Z79.899 Other long term (current) drug therapy; Z74.01 Bed confinement status; Z86.14 Personal history of Methicillin resistant Staphylococcus aureus infection
CPT/HCPCS: 0241U; 36415; 51702; 70450; 80048; 80053; 80069; 81001; 82947; 83605; 85025; 87077; 87086; 87186; 90686; 92526; 92610; 93005; 93010; 94760; 96365-59; 96372; 97162; 97530; 99285-25; A9270; G0008; G0378; J0696; J1580; J1650; J1815; J7050; J7120; U0004